=== PATIENT | female | born 1950 | race Caucasian/White ===

== ENCOUNTER 2019-07-18 12:02 | Emergency (ER) | payer MEDICARE ==
[2019-07-18 12:19] VITALS: BP 141/68
--- NOTE | 2019-07-18 12:37 | ED Physician Documentation ---
History of Present Illness - Stated complaint Stated Complaint: L LEG PAIN - Chief complaint Chief Complaint: General - History obtained from History obtained from: Patient - History of Present Illness Timing: Last night (She woke up last night with near painless bruising of the left leg. She also notes some skin rash on some fingers from washing her hands a lot. No shortness of breath or chest pain.) Review of Systems Constitutional: denies: Fever, Chills Nose: denies: Rhinorrhea / runny nose, Congestion Throat: denies: Sore throat Cardiac: denies: Chest pain / pressure, Palpitations Respiratory: denies: Dyspnea, Cough PD PAST MEDICAL HISTORY - Present Medications Home Medications: Ambulatory Orders Medication Instructions Recorded Confirmed Metformin HCl 500 mg PO BID #60 tablet 07/18/19 Triamcinolone 0.1% Oint [Kenalog 1 gm TOP BID #1 tube 07/18/19 0.1% Oint] - Allergies Allergies/Adverse Reactions: Allergies Allergy/AdvReac Type Severity Reaction Status Date / Time diphenhydramine AdvReac Hallucinati Verified 07/18/19 12:19 [From Benadryl] ons PD ED PE NORMAL - Vitals Vital signs reviewed: Yes - General General: Alert and oriented X 3, No acute distress - Derm Derm: Normal color, Warm and dry - Extremities Extremities: Other (There is an extensive ecchymosis without sign of infection running from the lateral mid thigh on the left down to the lateral calf. No tenderness. She has some eczema on a couple of her fingers of the right hand.) - Neuro Neuro: Alert and oriented X 3, Normal speech Results - Vitals Vitals: Vital Signs - 24 hr 07/18/19 12:14 Temperature 36.2 C L Heart Rate 83 Respiratory 16 Rate Blood Pressure 141/68 H O2 Saturation 98 Oxygen O2 Source Room air - Labs Labs: Laboratory Tests 07/18/19 07/18/19 07/18/19 12:38 12:38 12:38 WBC 7.3 RBC 5.07 Hgb 15.6 Hct 46.3 MCV 91.3 MCH 30.8 MCHC 33.7 RDW 13.4 Plt Count 220 MPV 10.7 Neut # (Auto) 4.7 Lymph # (Auto) 2.1 Wright # (Auto) 0.4 Eos # (Auto) 0.1 Baso # (Auto) 0.0 Absolute Nucleated RBC 0.00 Nucleated RBC % 0.0 PT 11.3 INR 1.0 Sodium 137 Potassium 3.9 Chloride 102 Carbon Dioxide 26 Anion Gap 9.0 BUN 17 Creatinine 0.7 Estimated GFR (MDRD) 83 L Glucose 310 H Glycated Hemoglobin Estim Average Glucose Calcium 9.3 Total Bilirubin 2.1 H AST 15 ALT 16 Alkaline Phosphatase 95 Total Protein 7.4 Albumin 4.3 Globulin 3.1 Albumin/Globulin Ratio 1.4 Lipase 39 07/18/19 12:38 WBC RBC Hgb Hct MCV MCH MCHC RDW Plt Count MPV Neut # (Auto) Lymph # (Auto) Wright # (Auto) Eos # (Auto) Baso # (Auto) Absolute Nucleated RBC Nucleated RBC % PT INR Sodium Potassium Chloride Carbon Dioxide Anion Gap BUN Creatinine Estimated GFR (MDRD) Glucose Glycated Hemoglobin 10.4 H Estim Average Glucose 252 H Calcium Total Bilirubin AST ALT Alkaline Phosphatase Total Protein Albumin Globulin Albumin/Globulin Ratio Lipase PD MEDICAL DECISION MAKING - ED course ED course: 69-year-old woman presents with left leg bruising, no clear trauma. It certainly more looks more traumatic than anything else though. Doppler ultrasound was negative except for Stock[place]'s cyst. Note made of her blood sugar at 310, this was followed by an A1c confirming long-term hyperglycemia. She was counseled on the importance of diet and exercise and we will start her on metformin pending follow-up with her physician. Departure - Departure Disposition: 01 Home, Self Care Clinical Impression: Left leg pain, Hyperglycemia Eczema Qualifiers: Eczema type: unspecified Qualified Code(s): L30.9 - Dermatitis, unspecified Condition: Good Record reviewed to determine appropriate education?: Yes Instructions: ED Hyperglycemia New Susp Diabetes, ED Diet Diabetic Follow-Up: [facility] [Provider Group] Prescriptions: Metformin HCl 500 mg PO BID #60 tablet Triamcinolone 0.1% Oint [Kenalog 0.1% Oint] 1 gm TOP BID #1 tube Comments: Apply the steroid cream, enough to coat the fingers at night, and then wear cotton garden gloves over that. That should help with the fingers. Follow-up with your primary care physician within the week for recheck, diet and exercise is important as discussed. Return for new or worsening symptoms.
[2019-07-18 12:50] LABS: BASOPHILS % (AUTO) 0.5 %; EOSINOPHILS # (AUTO) 0.1 10^3/uL (0.0-0.7); EOSINOPHILS % (AUTO) 1.6 %; HGB - HEMOGLOBIN 15.6 g/dL (12.0-16.0); LYMPHOCYTES # (AUTO) 2.1 10^3/uL (1.5-3.5); LYMPHOCYTES % (AUTO) 28.1 %; MEAN CORPUSCULAR HEMOGLOBIN 30.8 pg (27.0-31.0); MEAN CORPUSCULAR HGB CONC 33.7 g/dL (32.0-36.0); MEAN CORPUSCULAR VOLUME 91.3 fL (81.0-99.0); MEAN PLATELET VOLUME 10.7 fL (7.9-10.8); MONOCYTES # (AUTO) 0.4 10^3/uL (0.0-1.0); MONOCYTES % (AUTO) 5.3 %; NEUTROPHILS # (AUTO) 4.7 10^3/uL (1.5-6.6); NEUTROPHILS % (AUTO) 64.1 %; PLT - PLATELET COUNT 220 10^3/uL (130-450); RED BLOOD COUNT 5.07 10^6/uL (4.20-5.40); RED CELL DISTRIBUTION WIDTH 13.4 % (12.0-15.0); WHITE BLOOD COUNT 7.3 x10^3/uL (4.8-10.8)
[2019-07-18 13:03] LABS: ALBUMIN 4.3 g/dL (3.2-5.5); ALBUMIN/GLOBULIN RATIO 1.4 (1.0-2.2); BILIRUBIN,TOTAL 2.1 mg/dL (0.2-1.0); CALCIUM 9.3 mg/dL (8.5-10.3); CREATININE 0.7 mg/dL (0.4-1.0); TOTAL PROTEIN 7.4 g/dL (6.7-8.2)
[2019-07-18 13:13] LABS: PT - PROTHROMBIN TIME 11.3 secs (9.9-12.6)
--- NOTE | 2019-07-18 13:40 | Ultrasound Report ---
Reason: LLE pain Procedure Date: 07/18/2019 Accession Number: [id number] / [id number] Procedure: US - Duplex Ext Veins Left CPT Code: Final Report FULL RESULT: EXAM: LEFT LOWER EXTREMITY VENOUS ULTRASOUND EXAM DATE: 07/18/2019 01:03 PM. CLINICAL HISTORY: LLE pain. COMPARISON: None. TECHNIQUE: Real-time sonographic vascular imaging was performed by the front man through the lower extremity utilizing both color-flow and Doppler spectral analysis. Multiple loan representative static images were saved for review. FINDINGS: Common Femoral Vein (CFV): Normal. CFV-GSV Junction: Normal. Profunda Femoral Vein (PFV): Normal. Femoral Vein (FV) Prox: Normal. Femoral Vein (FV) Mid: Normal. Femoral Vein (FV) Dist: Normal. Popliteal Vein: Normal. Posterior Tibial Veins: Normal. Peroneal Veins: Normal. Contralateral Side CFV: Normal. Other: There is a 5.4 cm diameter left sided popliteal cyst. IMPRESSION: Left popliteal cyst. No DVT. RADIA
[2019-07-18 13:56] LABS: HEMOGLOBIN A1C 1.36 g/dL; HEMOGLOBIN A1C % 10.4 % (4.6-6.2)
== END 2019-07-18 14:15 | disposition home or self-care (01) ==
LOC: ED 12:02
DX: R73.9 Hyperglycemia, unspecified (principal); M71.22 Synovial cyst of popliteal space [Baker], left knee; M79.605 Pain in left leg; L30.9 Dermatitis, unspecified
CPT/HCPCS: 36415; 80053; 83036; 83690; 85025; 85610; 99283; 99284

== ENCOUNTER 2022-02-13 16:13 | Emergency (ER) | payer MEDICARE ==
[2022-02-13 16:31] VITALS: BP 141/71
--- NOTE | 2022-02-13 17:16 | ED Physician Documentation ---
PD HPI LOWER EXT INJURY - Stated complaint Stated Complaint: LT KNEE PX - Chief complaint Chief Complaint: Ext Problem - History obtained from History obtained from: Patient - History of Present Illness PD HPI LOW EXT INJURY LOCATION: Left, Knee Type of injury: Twist (she was getting up from sitting in chair and felt a pop in knee, with onset of pain with walking. pain mostly back of knee and upper calf. hard to take steps.) Timing - onset: Today (earlier today and has had increased swelling of knee through the day. walking with limp favoring not bending the knee. No giving out nor locking. Pain mostly back of knee.) Timing - details: Abrupt onset, Still present Associated symptoms: Swelling. No: Weakness, Numbness Similar symptoms before: Has not had sx before Review of Systems Skin: denies: Rash, Lesions, Abrasion (s), Laceration (s) Musculoskeletal: reports: Other (was not having pain in knee prior to this morning.) Neurologic: denies: Focal weakness, Numbness PD PAST MEDICAL HISTORY - Past Medical History Cardiovascular: None Respiratory: Asthma Neuro: None Endocrine/Autoimmune: Type 2 diabetes GI: None ADOLESCENT SPECIALIST: None : None HEENT: None Psych: None Musculoskeletal: Osteoarthritis Derm: Eczema - Past Surgical History Past Surgical History: Yes HEENT: Other - Present Medications Home Medications: Ambulatory Orders Medication Instructions Recorded Confirmed Multivitamin 1 each PO DAILY 08/08/19 02/13/22 Metformin HCl 500 mg PO BID 12/03/19 02/13/22 - Allergies Allergies/Adverse Reactions: Allergies Allergy/AdvReac Type Severity Reaction Status Date / Time acetaminophen AdvReac confusion Verified 02/13/22 16:31 [From Darvocet-N 100] codeine AdvReac Unknown Verified 02/13/22 16:31 diphenhydramine AdvReac Hallucinati Verified 02/13/22 16:31 [From Benadryl] ons mussels AdvReac Emesis Verified 02/13/22 16:31 propoxyphene AdvReac confusion Verified 02/13/22 16:31 [From Darvocet-N 100] - Social History Does the pt smoke?: No Smoking Status: Never smoker Does the pt drink ETOH?: Yes Does the pt have substance abuse?: No PD ED PE NORMAL - Vitals Vital signs reviewed: Yes - General General: Alert and oriented X 3, Well developed/nourished - Derm Derm: Normal color, Warm and dry - Extremities Extremities: No edema, Other (left knee exam limited by discomfort of movement but also by tenderness in calf area resulting in difficult to do stress testing. fullness and tender popliteal. mild knee effusion. pain on valgus stress. no gross laxity.) - Neuro Neuro: No motor deficit, No sensory deficit Results - Vitals Vitals: Vital Signs - 24 hr 02/13/22 16:28 Temperature 36.3 C L Heart Rate 85 Respiratory 16 Rate Blood Pressure 141/71 H O2 Saturation 98 Oxygen O2 Source Room air - Rads (name of study) left knee Radiology: Prelim report reviewed (arthritic. no fractures. ), See rad report PD MEDICAL DECISION MAKING - ED course Complexity details: reviewed results (no fractures. Has arthritis knee. ), considered differential (tender and some fullness popliteal area with upper calf muscle tender. But also painful for ligament testing of knee. Consider partial rupture bakers cyst, versus meniscal process/tear. Does not seem as much aCL. ), d/w patient Departure - Departure Disposition: 01 Home, Self Care Clinical Impression: Acute knee pain Qualifiers: Laterality: left Qualified Code(s): M25.562 - Pain in left knee Condition: Stable Record reviewed to determine appropriate education?: Yes Instructions: ED Meniscal Injury Knee Poss Follow-Up: ANSON NOLASCO MD [Primary Care Provider] - [facility] [Provider Group] Comments: Use the knee brace when up and around doing any activity or walking. You can wear it when rested or sleeping if it feels more comfortable but is not necessary for healing. At crutches or walker if needed to help with balance or partial weightbearing. By the sound of your symptoms and on exam, I would consider the possibility of a meniscal injury (cartilage in the knee). However other consideration may be as simple as a partial rupturing of a cyst in the back of the knee (Stock[place]'s cyst) which would cause irritation and pain in the areas that you are hurting and would generally fade and improve over several days. See how much improvement you have over the next several days to week. No follow-up necessarily if essentially improved in that timeframe. Otherwise follow-up with orthopedics for reevaluation to better assess ligaments and cartilage and decide any further treatments or diagnostics. Use some ibuprofen 2 to 3 tablets 2-3 times daily for the next several days to week with food. Add Tylenol every 4-6 hours if needed for pain. Your x-ray is good showing some arthritis but no signs of fractures or dislocations. Discharge Date/Time: 02/13/22 18:31
--- NOTE | 2022-02-13 17:26 | XRAY Report ---
PROCEDURE: Knee 4 View LT INDICATIONS: Trauma TECHNIQUE: 4 views of the left knee(s) were acquired. COMPARISON: None. FINDINGS: Bones: No fractures or dislocations. No suspicious bony lesions. Osteopenia. Marginal small osteop hytes noted lateral patellofemoral severe joint space narrowing Soft tissues: Joint effusion noted. No suspicious soft tissue calcifications. IMPRESSION: Patellofemoral osteoarthritis. No fracture Reviewed by: Brian Nicole MD on 02/13/2022 4:24 PM [place] Approved by: Brian Nicole MD on 02/13/2022 4:24 PM [place] Station ID: [id number]
[2022-02-13] MEDS ORDERED: IBUPROFEN 600 MG TABLET PO STA (17:38)
[2022-02-13] MEDS ORDERED: ACETAMINOPHEN 325 MG TABLET PO STA (17:38)
== END 2022-02-13 18:31 | disposition home or self-care (01) ==
LOC: ED 16:13
DX: M25.562 Pain in left knee (principal)
CPT/HCPCS: 73564; 99282; 99283; A9270

== ENCOUNTER 2022-03-14 08:00 | Outpatient (CLI) | payer MEDICARE ==
[2022-03-14 19:56] LABS: CLARITY,URINE CLOUDY (CLEAR)
[2022-03-14 19:59] LABS: BACTERIA,URINE Moderate /HPF (None Seen); RBC,URINE 0-5 /HPF (0-5); SQUAMOUS EPITHELIAL CELL,UR FEW Squamous (<= Few)
== END 2022-03-14 23:59 | disposition home or self-care (01) ==
LOC: LAB 08:00
PROVIDERS: ATTEND Emergency Medicine
DX: R30.0 Dysuria (principal)
CPT/HCPCS: 81001; 87077; 87086; 87181

== ENCOUNTER 2022-05-04 07:00 | Outpatient (CLI) | payer MEDICARE | END 2022-05-04 23:59 | disposition home or self-care (01) | LOC: LAB.S 07:00 | PROVIDERS: ATTEND Physician Assistant | DX: R30.0 Dysuria (principal) | CPT/HCPCS: 87086; 87181 ==

== ENCOUNTER 2022-12-01 07:00 | Outpatient (CLI) | payer MEDICARE ==
[2022-12-01 14:30] LABS: BILIRUBIN,URINE NEGATIVE (NEGATIVE); CLARITY,URINE CLOUDY (CLEAR); ICTOTEST,URINE NEGATIVE
[2022-12-01 14:39] LABS: BACTERIA,URINE Few /HPF (None Seen); SQUAMOUS EPITHELIAL CELL,UR FEW Squamous (<= Few); WBC,URINE >25 /HPF (0-5)
== END 2022-12-01 23:59 | disposition home or self-care (01) ==
LOC: LAB.S 07:00
PROVIDERS: ATTEND Emergency Medicine
DX: R30.0 Dysuria (principal)
CPT/HCPCS: 81001; 87077; 87086; 87181